=== PATIENT | female | born 1945 | race Caucasian/White ===

== ENCOUNTER → 2016-08-11 | Outpatient (CLI) | payer MEDICARE ==
[~2016-08-11] MED LIST: ASPIRIN EC81 MG PO; BENICAR HCT 401 EAC1 PO; FISH OIL 1,2001 EACH PO; GLUCOSAMINE S1000 M1 PO; HUMULIN R500 UNIT/M SUB-Q; LIPITOR10 MG PO; NEURONTIN300 MG PO; NORCO 5-325 TA1 EACH PO; ONE DAILY WOME1 EAC1 PO; PRESERVISION A1 EACH PO; PROTONIX40 MG PO; TRICOR145 MG PO; ULTRAM50 MG PO; VICTOZA 2-0.6 MG/0.1 SUB-Q; VITAMIN D35000 UNI1 PO; ZETIA10 MG PO
== END | disposition disaster alternative care site (69) ==
LOC: GRAD 09:18
DX: M51.36 Other intervertebral disc degeneration, lumbar region (principal); M47.896 Other spondylosis, lumbar region; M48.06 Spinal stenosis, lumbar region

== ENCOUNTER 2016-08-25 09:24 | Observation (INO) | payer MEDICARE ==
[~2016-08-25] VITALS: Ht 157.5 cm; Wt 85.0 kg
--- NOTE | ~2016-08-25 | OR ---
PATIENT'S NAME: MICKIE LAL [facility] AGE: 71 Y [address] ROOM: [address] [address] LOCATION: [facility] ADMIT DATE: 08/26/2016 OR/Procedure Report DISCHARGE DATE: 08/27/2016 FAMILY PHYSICIAN: Lesley Nicholson APRN ATTENDING PHYSICIAN: Wilda Hebert SURGEON: Wilda Hebert MD ORE CRUSHER: Brianna Burger. DATE OF PROCEDURE: PREOPERATIVE DIAGNOSIS: Lumbar spinal stenosis. POSTOPERATIVE DIAGNOSIS: Lumbar spinal stenosis. PROCEDURES PERFORMED: 1. Bilateral laminectomy with decompression of neural elements and foraminotomy without diskectomy at L3-4. 2. Bilateral laminectomy with decompression of neural elements without foraminotomy at L4-5. ANESTHESIA: General. ANESTHESIA PROVIDER: Matt Zurita MD. HISTORY: This patient is a 71-year-old female, who presented with clinical and radiological findings consistent with lumbar spinal stenosis. The patient's symptoms have been ongoing for a number of years. Surgery was recommended. The procedure, benefits, and risks were discussed with the patient and with her consent, she was brought to the operating room for surgery. PROCEDURE IN DETAIL: In the operating room, the patient was placed in a supine position. Anesthesia was induced. She was intubated. She was then rolled to a prone position on a Jone table taking care to protect all pressure points. The incision line was marked out in the midline of her lower back and the whole area was prepped and draped in a sterile fashion. Local anesthesia was infiltrated. The incision was opened and dissection was carried out to the level of the lumbar fascia. Self-retaining retractors were placed. The Bovie was used to deepen the incision to the tips of the spinous processes. The paraspinous muscles were dissected off the spinous processes and laminae of L3, L4, and L5. Intraoperative x-ray was obtained to confirm that we were at the desired levels. Laminectomy was then performed at L3, L4, and L5. The lamina on both sides were drilled down with the high-speed drill, and then the rongeur was used to remove the laminae and spinous processes at each level. Stenosis was PATIENT'S NAME: MICKIE LAL [facility] AGE: 71 Y [address] ROOM: [facility] [place] [place], [place] [address] LOCATION: [facility] ADMIT DATE: 08/26/2016 OR/Procedure Report DISCHARGE DATE: 08/27/2016 FAMILY PHYSICIAN: Lesley Nicholson APRN ATTENDING PHYSICIAN: Wilda Hebert particularly severe at the L4-5 level. Working very carefully, complete decompression was achieved. The Kerrison rongeur was used to remove the rest of the laminae and also to perform medial facetectomy. At the end of the decompression, the nerve roots at the L3-4, L4-5, and L5-S1 could be visualized clearly on both sides going into the foramen. The foraminotomy was performed for each foramen until there was no obstruction of the nerve roots. The laminectomy edges were then waxed with bone wax. Epidural bleeding was controlled using fibrillar and bipolar. The incision was then closed. Irrigation was used to wash out the debris. The incision was closed using appropriate suture materials. Sterile dressing was applied. The patient was rolled back to a supine position. Her anesthesia was reversed. She was extubated and taken to the recovery room to complete her recovery. I was present and performed every aspect of this procedure, assisted at some stages by operating room nurses. There were no apparent intraoperative complications. Swabs, needles, and instruments were accounted for at the end of the case. Estimated blood loss was less than 300 mL, and there was no reason for blood transfusion. I expect the patient to benefit from this procedure. MD AMY PARRISHO/karla /[id number] CC: Lesley Nicholson APRN d: 08/30/16 0135 t: [id number], OPERATIVE SUMMARY
[~2016-08-25 09:24] MED LIST changes: -NEURONTIN300 MG PO; -NORCO 5-325 TA1 EACH PO
--- NOTE | 2016-08-25 17:15 | NUR ---
Diabetes consult; Visited with patient in PACU. Patient utilizes an insulin pump and uses U-500 insulin in the pump. Patient reports having set a temporary basal rate of -70% on her insulin pump. Blood sugars were kept at 112 and 135. Patient is alert and oriented at this time. Patient reports she wants to be woke up at 0200 for a blood sugar check. This was documented on the order sheet. Pump site to [facility] intact with U-500 infusing. Report was called to Kaylee Trevizo on 3N. Will have CDE see patient in the morning.
--- NOTE | 2016-08-25 19:15 | NUR ---
PATIENT RETURNED FROM PACU AT 1730. INSULIN PUMP INFUSING TO LEFT ABDOMEN, ABRAHAN NESBITT DIABETIC NURSE SET UP PUMP WITH PATIENT, INSULIN IS U-500. VSS BP SYSTOLIC 112 TO 95. 1ST 1/2 HRLY AT 1845, DRESSING D/I TO BACK. NUMBNESS/TINGLING TO FEET AND LOWER LEGS. DOPPLED PULSES BILATERALLY. LUNGS CLEAR. SORE THROAT COMPLAIN, GIVEN ICE CHIPS. MS 4 MG GIVEN AT 1800 FOR PAIN OF A 9 TO BACK. FOLLOW UP: PATIENT HAS OWN INSULIN BAG AND SET UPS IN FRIDGE IN MED ROOM, PLEASE HAVE PHARMACY REVIEW.
--- NOTE | 2016-08-26 03:51 | NUR ---
Shift Summary: Patient has numbness and tingling to bilateral feet. States her feet fill like they are asleep. When she stands on them she states they fill like wood. Patient started on Decadron. She is diabetic and has an insulin pump with a basal rate. Patient programs in carb count for meals and results of accuchecks. Accuchecks are AC/HS & 0200. Her bedtime BS was 151, 0200 BS was 131. [place] [facility] [place] Voiding without difficulty. Tolerating ADA diet. Has only had one dose of Morphine IV at 2138.
--- NOTE | 2016-08-26 10:10 | NUR ---
Introduced self/role to patient. She lives in [place] with her Wilfredo. She will also have her sons, [id number] and grown grandchildren around to assist her. Denied any barriers to going home or at home. Added my name to her marker board.
--- NOTE | 2016-08-26 10:18 | NUR ---
[facility] Center note: 0930 Patient is managing her own Medtronic insulin pump and is checking her own blood sugars. Patient reports FBS this a.m. was 115, recording on log sheet. Patient reports that she is planning to be dismissed on Tuesday or Tuesday, will be due for insulin infusion set 08/27/16, will assist if needed. Patient has her own supplies and is willing to let nurses know if she needs any assistance with her diabetes.
--- NOTE | 2016-08-26 15:53 | NUR ---
Diabetes center note: 0990 Assisted patient in completing the Diabetes Survival Skills Assessment form. Also provided additional log sheets at bedside for on-going recording blood sugars. Blood sugar stable at this time, see log sheet attached to chart. Last A1C, as per [facility] note was 7.2 % in July 2016. Patient states she has all of her own supplies and U 500 Regular insulin, so that when she needs to change her site, she is able to do this on her own. Will check on her in a.m. of 08/27/16. No further questions at this time, patient is pleasant and appreciates assistance.
--- NOTE | 2016-08-26 17:17 | NUR ---
Significant Event: patient alert and oriented x3. back dressing c/d/i. csm assessments to bilateral lower legs, pedal pulses present/doppled, continues to c/o slight numbness/tingling to l) foot, r) foot with numbness/tingling with some improvement. ambulates to bathroom and up to chair with 1 assist, use of walker/gait belt. accuchecks 115, 159, 212, has own insulin pump. recieved morphine iv at 0954 and norco 1 tab at 1508, rates pain 5-2 on pain scale. pleasant and cooperative with cares. Follow up:
--- NOTE | 2016-08-27 04:05 | NUR ---
Significant Event: Alert/oriented x3. Back dressing C/D/I. CSM - pedal pulses presnt, continues to c/o slight numbness/tingling to left foot, right foot has more numbness/tingling with improvement. Dr Zapata made rounds last night, ordered Neurontin 300 mg TID. 1 assist ambulation to bathroom, using gait belt and walker, tolerates well. Insulin pump - Accucheck at HS was 198, pump would not let her do a bolus; Accucheck at 0200 was 169, pump gave 1.8 U Humulin R-500. Have more insulin in med room fridge. She stated she might renew it later this morning after showering. No complaints of pain - no pain meds given. Last Ambler was at 1508 yesterday. Possible dismissal home today. Follow up:
--- NOTE | 2016-08-27 12:12 | NUR ---
Diabetes Center noted: 1000 Patient continues to utilize her own Medtronic insulin for blood sugar control. Patient records results of blood sugars and insulin doses on log sheet at bedside. Patient reports that she changed her insulin infusion set earlier this a.m. and has her U 500 insulin bottle in her room, as she anticipates being dismissed today. Patient offers no further complaints, agrees to continue follow up after dismissed with Nay Fernandez APRN at [facility].
[2016-08-27] MEDS ORDERED: NEURONTIN300 MG PO (16:55)
[2016-08-27] MEDS ORDERED: NORCO 5-325 TA1 EACH PO (16:56)
--- NOTE | 2016-08-27 19:03 | NUR ---
Discharge instructions reviewed with patient and Reviewed all medications, when to call the doctor, activity, dvt prevention, care of dressing, s/s infection. Encouraged to call doctor with any questions or concerns after discharge. All belongings sent with patient, including her own insulin. To front door per w/c.
--- NOTE | 2016-08-27 19:10 | NUR ---
island barriers and shower guards explained to patient and and sent home with them.
== END 2016-08-27 17:30 | disposition disaster alternative care site (69) ==
LOC: GSDC 09:24 → G3N 09:24 → GSDC 08-26 20:40 → G3N 08-27 17:30
PROVIDERS: ADMIT Neurological Surgery
PROC: 01NB0ZZ Release Lumbar Nerve, Open Approach (ICD-10-PCS; principal; 2016-08-25)
DX: M48.06 Spinal stenosis, lumbar region (principal); E78.00 Pure hypercholesterolemia, unspecified; E11.22 Type 2 diabetes mellitus with diabetic chronic kidney disease; N18.3 Chronic kidney disease, stage 3 (moderate); I10 Essential (primary) hypertension; J30.9 Allergic rhinitis, unspecified; K21.9 Gastro-esophageal reflux disease without esophagitis; N28.9 Disorder of kidney and ureter, unspecified; Z90.49 Acquired absence of other specified parts of digestive tract; Z98.49 Cataract extraction status, unspecified eye; Z87.891 Personal history of nicotine dependence; Z98.890 Other specified postprocedural states; Z79.4 Long term (current) use of insulin; Z88.0 Allergy status to penicillin; Z88.8 Allergy status to other drugs, medicaments and biological substances; Z90.710 Acquired absence of both cervix and uterus
CPT/HCPCS: G0378; G8978; G8979; G8980; G8988; G8989; J1040; J1100; J2001; J2270; J2405; J2795; J3010; J3370; J7030

== ENCOUNTER → 2016-09-13 | Outpatient (CLI) | payer MEDICARE ==
[~2016-09-13] MED LIST changes: +NEURONTIN300 MG PO; +NORCO 5-325 TA1 EACH PO
== END ==
LOC: LGSMG 12:33
DX: Z00.00 Encounter for general adult medical examination without abnormal findings (principal); I13.0 Hypertensive heart and chronic kidney disease with heart failure and stage 1 through stage 4 chronic kidney disease, or unspecified chronic kidney disease; N18.3 Chronic kidney disease, stage 3 (moderate); Z79.899 Other long term (current) drug therapy; E83.52 Hypercalcemia; E11.22 Type 2 diabetes mellitus with diabetic chronic kidney disease

== ENCOUNTER → 2016-10-13 | Outpatient (CLI) | payer MEDICARE | END | disposition disaster alternative care site (69) | LOC: GRAD 14:13 | DX: M54.5 Low back pain (principal); R20.0 Anesthesia of skin; M47.896 Other spondylosis, lumbar region; Z98.890 Other specified postprocedural states ==